=== PATIENT | male | born 2000 | race Caucasian/White ===

== ENCOUNTER → 2023-12-24 | Outpatient (CLI) | payer BC ==
[2024-02-12 11:40] LABS: ALBUMIN 4.4 g/dL (3.5-5.0); CALCIUM 9.3 mg/dL (8.3-10.5); TOTAL BILIRUBIN 1.3 mg/dL (0.2-1.2); TOTAL PROTEIN 6.8 g/dL (6.4-8.3)
== END ==
LOC: LAB 14:29
PROVIDERS: Family Medicine
DX: Z01.89 Encounter for other specified special examinations (principal)